=== PATIENT | male | born 1960 | race Caucasian/White ===

== ENCOUNTER 2022-03-30 08:57 | Outpatient (CLI) | payer BC, SELFPAY ==
[2022-03-30 14:04] LABS: Chloride* 107 mmol/L (96-114)
[2022-03-30 14:05] LABS: Potassium* 4.8 mmol/L (3.6-5.1); Sodium* 139 mmol/L (135-149)
[2022-03-30 14:07] LABS: Creatinine* 1.2 mg/dL (0.5-1.5); Estimated Glomerular Filt Rate 69 ml/min
[2022-03-30 14:08] LABS: Blood Urea Nitrogen* 27 mg/dL (7-30); Calcium* 9.5 mg/dL (8.4-10.6); Carbon Dioxide* 26 mmol/L (20-32); Glucose* 104 mg/dL (60-115)
== END 2022-03-30 08:58 | disposition home or self-care (01) ==
LOC: LONREF 08:58
PROVIDERS: PCP Family Medicine; Visit Provider Family Medicine
DX: I10 Essential (primary) hypertension (principal)
CPT/HCPCS: 80048

== ENCOUNTER 2022-05-20 11:44 | Outpatient (CLI) | payer BC, SELFPAY ==
[2022-05-20 12:09] VITALS: BP 164/98; PULSE 78; RESP 16; O2SAT 94
[2022-05-20] MEDS: TETRACAINE 0.5% OPHTH 1 DROP EYE-RIGHT ×3 (12:13→12:39)
[2022-05-20] MEDS: BRIMONIDINE TARTRATE 0.2% OPHTH 1 DROP EYE-RIGHT ×2 (12:14→12:49)
--- NOTE | 2022-05-20 12:48 | W.PM.OPTPROC ---
Procedure Note Date of procedure: 05/20/22 Will [facility] bill your pro fee for this procedure?: Yes Procedure Description: SURGEON: Cailin Molina MD PREOPERATIVE DIAGNOSIS: Posterior capsular opacity, right eye POSTOPERATIVE DIAGNOSIS: Posterior capsular opacity, right eye PROCEDURE: YAG laser capsulotomy, right eye ANESTHESIA: Topical. ESTIMATED BLOOD LOSS: None PATHOLOGY SPECIMEN: None COMPLICATIONS: None INDICATIONS: See consult note for details. The risks, benefits and alternatives of the procedure were explained to the patient, who elected to proceed and signed informed consent to do so. PROCEDURE: The patient was brought to the pre-holding area where the right eye was identified as the operative eye. I placed my initials above this eye. The patient received 2 sets of 1 drop of 0.5% tetracaine and 1 drop of 1% tropicamide. They also received 1 drop of 0.2% brimonidine. They received 1 drop of 0.5% tetracaine immediately prior to bringing them back for the procedure. The patient was then brought to the procedure room where the right eye was again identified as the operative eye. A YAG Ruben capsulotomy lens was placed on the eye. The laser was administered using a total number of 29 shots with an energy of 2.4 mJ per shot for a total energy of 70 mJ. The patient tolerated the procedure well. DISPOSITION: The patient was taken back to the pre-holding area and given 1 drop of 0.2% brimonidine in the right eye. They were discharged to home in stable condition. The patient was instructed to call me or go to the emergency department with any sudden change, including dramatic loss of vision, severe pain in the eye or eyebrow region, nausea, or vomiting. The patient was instructed to use the 0.2% brimonidine 1 drop 2 times a day in the right eye for 1 week. The patient will follow up in the clinic in 1-2 weeks. Surgeon: Cailin Molina MD
== END 2022-05-20 12:55 | disposition home or self-care (01) ==
PROVIDERS: PCP Family Medicine; Visit Provider Ophthalmology
DX: H26.9 Unspecified cataract (principal)
CPT/HCPCS: 66821; A9270

== ENCOUNTER 2022-07-06 10:42 | Outpatient (CLI) | payer BC, SELFPAY | END 2022-07-06 10:43 | disposition home or self-care (01) | LOC: LONREF 10:43 | PROVIDERS: PCP Family Medicine; Visit Provider Family Medicine | DX: M10.9 Gout, unspecified (principal); I10 Essential (primary) hypertension | CPT/HCPCS: 84550 ==

== ENCOUNTER 2022-09-05 17:15 | Emergency (ER) | payer BC, SELFPAY ==
[2022-09-05 17:28] VITALS: BP 118/71; PULSE 72; RESP 18; TEMP 36.6; O2SAT 96; BMI 37.1
--- NOTE | 2022-09-05 19:20 | ED.GENADULT ---
HPI - General Adult General Chief complaint: GI Bleed Stated complaint: Rectal Bleeding Time Seen by Provider: 09/05/22 19:04 History of Present Illness HPI narrative: This 62-year-old male comes in reporting a couple episodes of bright red blood streaking the stool that occurred this morning. He states that he feels completely fine. He did have 2 colonoscopies in the past. One was about 12 years ago and another 1 several years ago. There was a polyp that was scheduled to be removed but repeat colonoscopy showed resolution. He does not report any fever or abdominal pain. He has not had any dysuria or altered bowel function. He does not report any lightheadedness or shortness of breath. Related Data Home Medications Medication Instructions Recorded Confirmed glucosamine HCl 1,500 mg tablet 1,500 mg PO QDAY 03/30/22 08/30/22 Previous Rx's Medication Instructions Recorded lisinopril 40 mg tablet 40 mg PO QDAY #90 tabs 03/30/22 albuterol sulfate 90 mcg/actuation 2 puff inhalation Q4-6H PRN 04/01/22 aerosol inhaler shortness of breath or wheezing #25.5 grams finasteride 5 mg tablet See Rx Instructions .Route 04/01/22 .COMPLEX #90 tabs fluticasone 250 mcg-salmeterol 50 1 inh inhalation BID #180 ea 04/01/22 mcg/dose blistr powdr for inhalation (Veroniquexela Inhub) montelukast 10 mg tablet See Rx Instructions .Route 04/01/22 .COMPLEX #90 tabs allopurinol 100 mg tablet See Rx Instructions PO QDAY #180 07/06/22 tabs amlodipine 10 mg tablet 10 mg PO QDAY #90 tabs 07/06/22 metoprolol succinate 25 mg 25 mg PO QDAY #60 tabs 07/31/22 tablet,extended release 24 hr indomethacin 50 mg capsule 50 mg PO TID #30 caps 08/11/22 indomethacin 50 mg capsule 50 mg PO TID PRN gout #30 caps 08/30/22 prednisone 20 mg tablet 40 mg (2 x 20 mg) PO QDAY #14 tabs 08/30/22 spironolactone 25 mg tablet 25 mg PO BID #180 tabs 09/03/22 Allergies Allergy/AdvReac Type Severity Reaction Status Date / Time No Known Allergies Allergy Unknown Verified 08/30/22 08:42 Review of Systems Status of ROS: Reports: 10 or more systems reviewed and unremarkable except as noted in History and below Narrative: Constitutional: No fevers, no weight gain or loss. Eyes: No discharge. No vision changes. HENT: No congestion, no sore throat, no ear pain. Cardiovascular: No chest pain, no palpitations. Respiratory: No shortness of breath, no wheezes, no cough. Gastrointestinal: No abdominal pain, no vomiting, no diarrhea. Bright red blood streaking the stool this morning. Genitourinary: No dysuria, no hematuria. Musculoskeletal: Normal range of motion. Skin: No rashes, no pruritis. Neurological: No dizziness, weakness, sensory change, speech change. Endo/Heme/Allergies: No bruising or bleeding. No polydipsia. Pysch: no suicidality, no anxiety, no insomnia. All other systems reviewed and are negative. [facility] Medical History History of retinal tear ?Z86.69 - Personal history of other diseases of the nervous system and sense organs (ICD-10) Surgical History Status post tonsillectomy and adenoidectomy (11/19/09) ?Z90.89 - Acquired absence of other organs (ICD-10) Status post nasal septoplasty ?Z98.890 - Other specified postprocedural states (ICD-10) History of vasectomy (11/19/09) ?Z98.52 - Vasectomy status (ICD-10) Family History Other Colon cancer Diabetes Multiple myeloma Social History Smoking Status: Never smoker How often do you have a drink containing alcohol: 4 or more times a week How many standard drinks containing alcohol do you have on a typical day: 7 to 9 How often do you have six or more drinks on one occasion: Daily or almost daily AUDIT-C Alcohol total score: 11 Non-prescribed substance use: denies use Exam Narrative: Exam Narrative: Constitutional: Well-developed, well-nourished, no acute distress. HEENT: Normocephalic, atraumatic. Neck: Normal range of motion. Nontender. Supple. Heart: Regular. No murmurs. Normal rate. Intact distal pulses. Lungs: Clear to auscultation. No chest discomfort. No wheezes, rhonchi, or rales. Abdomen: Normal bowel sounds. Nontender. No rebound tenderness. Back: No midline tenderness. Normal range of motion. Extremities: Normal range of motion. No injury. Skin: Intact. No rash. Warm. No erythema or pallor. Neurologic: No altered sensation. No weakness. Alert and oriented. Psychiatric: No suicidality. No anxiety or depression. No insomnia. Nursing notes and vitals signs are reviewed. Const: Vital Signs, click to edit/add: Vital Signs - 24 hr 09/05/22 17:28 09/05/22 19:26 Temperature 97.9 F Pulse Rate [Right Pulse Oximeter] 72 70 Respiratory Rate 18 Blood Pressure [Ri ght Upper Arm] 118/71 129/97 H Pulse Oximetry 96 95 Oxygen Delivery Me thod Room Air Room Air Course Vital Signs Vital signs: Initial Vital Signs Temperature 97.9 F 09/05/22 17:28 Temperature Source Temporal Artery Scan 09/05/22 17:28 Pulse Rate 72 09/05/22 17:28 Respiratory Rate 18 09/05/22 17:28 Blood Pressure 118/71 09/05/22 17:28 Blood Pressure Mean 86 09/05/22 17:28 Blood Pressure Position Sitting 09/05/22 17:28 Pulse Oximetry 96 09/05/22 17:28 Oxygen Delivery Method Room Air 09/05/22 17:28 Vital Signs Temperature 97.9 F 09/05/22 17:28 Pulse Rate 72 09/05/22 17:28 Respiratory Rate 18 09/05/22 17:28 Blood Pressure 118/71 09/05/22 17:28 Pulse Oximetry 96 09/05/22 17:28 Oxygen Delivery Method Room Air 09/05/22 17:28 Temperature 97.9 F 09/05/22 17:28 Pulse Rate 70 09/05/22 19:26 Respiratory Rate 18 09/05/22 17:28 Blood Pressure 129/97 H 09/05/22 19:26 Pulse Oximetry 95 09/05/22 19:26 Oxygen Delivery Method Room Air 09/05/22 19:26 Medical Decision Making MDM Narrative Medical decision making narrative: This patient reports a couple episodes of bright red blood streaking the stool this morning. He states that he feels completely normal. He has had a couple colonoscopies in the past and there was evidence of a polyp on 1 of own. I did acquire labs today and these returned with reassuring findings. In particular his hemoglobin is at 13. I stressed the importance of follow-up appointment for flexible sigmoidoscopy or colonoscopy to further evaluate this. He is okay to be discharged home. I did describe signs and symptoms that would indicate a need for return and re-evaluation. Lab Data Labs: Lab Results 09/05/22 Range/Units 19:37 WBC 8.60 (4.50-11.00) K/uL RBC 4.60 (4.30-5.90) m/uL Hgb 13.2 L (13.5-17.5) gm/dL Hct 40.2 (37.0-53.0) % MCV 87 (80-100) fL MCH 29 (26-34) pg MCHC 33 (32-36) gm/dL RDW Coeff of Ama 14.3 (11.5-15.5) % Plt Count 316 (140-440) K/uL Neut % (Auto) 49.7 (42.0-72.0) % Lymph % (Auto) 32.6 (20-44) % [place] % (Auto) 11.6 H (0.0-11.0) % Eos % (Auto) 5.2 (0.0-7.0) % Baso % (Auto) 0.8 (0.0-3.0) % Neut # (Auto) 4.27 (1.7-7.0) K/uL Lymph # (Auto) 2.80 (0.90-2.90) K/uL [place] # (Auto) 1.00 H (0.00-0.90) K/UL Eos # (Auto) 0.45 (0.00-0.50) K/uL Baso # (Auto) 0.07 (0.00-0.30) K/uL Sodium 135 (135-149) mmol/L Potassium 5.1 (3.6-5.1) mmol/L Chloride 110 (96-114) mmol/L Carbon Dioxide 20 (20-32) mmol/L BUN 39 H (7-30) mg/dL Creatinine 1.3 (0.5-1.5) mg/dL Estimated Creat Clear 53.17 Estimated GFR 62 ml/min Glucose 85 (60-115) mg/dL Calcium 9.1 (8.4-10.6) mg/dL Discharge Plan Discharge Clinical Impression: Painless rectal bleeding Patient Disposition: Home, Self-Care Condition: Stable Additional Instructions: Continue current plans. Follow up with primary physician to arrange for colonoscopy or flexible sigmoidoscopy for further evaluation. Return if symptoms are recurrent or worsening. Prescriptions: No Action glucosamine HCl 1,500 mg tablet 1,500 mg PO QDAY Rx Instructions: administer with a meal lisinopril 40 mg tablet 40 mg PO QDAY Qty: 90 3RF amlodipine 10 mg tablet 10 mg PO QDAY Qty: 90 3RF allopurinol 100 mg tablet See Rx Instructions PO QDAY Qty: 180 3RF Rx Instructions: 100 mg daily for 10 days, then 200 mg daily orally every day; metoprolol succinate 25 mg tablet extended release 24 hr 25 mg PO QDAY Qty: 60 0RF indomethacin 50 mg capsule 50 mg PO TID Qty: 30 3RF Rx Instructions: administer with food or milk indomethacin 50 mg capsule 50 mg PO TID PRN (Reason: gout) Qty: 30 0RF Rx Instructions: administer with food or milk prednisone 20 mg tablet 40 mg PO QDAY Qty: 14 0RF albuterol sulfate 90 mcg/actuation HFA aerosol inhaler 2 puff inhalation Q4-6H PRN (Reason: shortness of breath or wheezing) Qty: 25.5 3RF finasteride 5 mg tablet See Rx Instructions .ROUTE .COMPLEX Qty: 90 3RF Dose Instruction: TAKE 1 TABLET BY MOUTH DAILY Rx Instructions: TAKE 1 TABLET BY MOUTH DAILY fluticasone propion-salmeterol [Wixela Inhub] 250-50 mcg/dose blister with device 1 inh inhalation BID Qty: 180 3RF montelukast 10 mg tablet See Rx Instructions .ROUTE .COMPLEX Qty: 90 3RF Dose Instruction: TAKE 1 TABLET BY MOUTH AT BEDTIME Rx Instructions: TAKE 1 TABLET BY MOUTH AT BEDTIME spironolactone 25 mg tablet 25 mg PO BID Qty: 180 3RF Follow Up/Referrals: Chevy Zuleta MD [Primary Care Provider] - Stand Alone Forms: [facility] Info Instructions
[2022-09-05 19:26] VITALS: BP 129/97; PULSE 70; O2SAT 95
[2022-09-05 19:44] LABS: Basophils Absolute Auto 0.07 K/uL (0.00-0.30); Basophils Percent Auto 0.8 % (0.0-3.0); Eosinophils Absolute Auto 0.45 K/uL (0.00-0.50); Eosinophils Percent Auto 5.2 % (0.0-7.0); Hematocrit 40.2 % (37.0-53.0); Hemoglobin* 13.2 gm/dL (13.5-17.5); Immature Granulocytes Abs Auto 0.01 K/uL (0.00-0.30); Immature Granulocytes Pct Auto 0.1 %; Lymphocytes Percent Auto 32.6 % (20-44); Mean Corpuscular HGB Conc 33 gm/dL (32-36); Mean Corpuscular Hemoglobin 29 pg (26-34); Mean Corpuscular Volume 87 fL (80-100); Monocytes Percent Auto 11.6 % (0.0-11.0); Neutrophils Absolute Auto 4.27 K/uL (1.7-7.0); Neutrophils Percent Auto 49.7 % (42.0-72.0); Platelet Count* 316 K/uL (140-440); RDW Coefficient of Variation % 14.3 % (11.5-15.5)
[2022-09-05 19:48] LABS: Slide Review Reflex No
[2022-09-05 19:59] LABS: Chloride* 110 mmol/L (96-114); Potassium* 5.1 mmol/L (3.6-5.1); Sodium* 135 mmol/L (135-149)
[2022-09-05 20:02] LABS: Blood Urea Nitrogen* 39 mg/dL (7-30); Carbon Dioxide* 20 mmol/L (20-32); Creatinine* 1.3 mg/dL (0.5-1.5); Est. Creatinine Clearance* 53.17; Estimated Glomerular Filt Rate 62 ml/min
[2022-09-05 20:03] LABS: Calcium* 9.1 mg/dL (8.4-10.6); Glucose* 85 mg/dL (60-115)
== END 2022-09-05 20:17 | disposition home or self-care (01) ==
PROVIDERS: Emergency Provider Emergency Medicine Emergency Medical Services; PCP Family Medicine
DX: K62.5 Hemorrhage of anus and rectum (principal)
CPT/HCPCS: 36415; 80048; 85025; 99283; 99284

== ENCOUNTER 2022-10-02 10:29 | Outpatient (CLI) | payer BC, SELFPAY | END 2022-10-02 10:30 | disposition home or self-care (01) | PROVIDERS: PCP Family Medicine; Visit Provider Family Medicine | DX: I10 Essential (primary) hypertension (principal); M10.9 Gout, unspecified; R53.83 Other fatigue; M25.50 Pain in unspecified joint | CPT/HCPCS: 84443; 84550; 86200; 86431 ==

== ENCOUNTER 2023-02-13 12:17 | Emergency (ER) | payer BC, SELFPAY ==
[2023-02-13] VITALS (7 sets, daily range): BP systolic 126–141; BP diastolic 81–89; PULSE 71–89; RESP 16–18; TEMP 35.8; O2SAT 95–98; BMI 37.6
--- NOTE | 2023-02-13 13:23 | ED.GENADULT ---
HPI - General Adult General Chief complaint: Syncope/Fainted Stated complaint: passed out about an hr ago high blood pressure Time Seen by Provider: 02/13/23 12:58 History of Present Illness HPI narrative: This 62-year-old male comes in reporting as a episode of lightheadedness with brief loss of consciousness that occurred prior to arrival. He states that he was laying down under a vehicle working on it is under body when he began to feel lightheaded and states that he had a brief loss of consciousness. After this occurred he had some nausea and was a bit diaphoretic. He does not report any pain. He is on several antihypertensive medications and reports that he had a new prescription for spironolactone where the pill looks different than what he had been taking. He did take a tablet this morning and wonders if he may have taken an extra dose somehow. Currently he feels back to normal. Related Data Previous Rx's Medication Instructions Recorded albuterol sulfate 90 mcg/actuation 2 puff inhalation Q4-6H PRN 09/11/22 aerosol inhaler shortness of breath or wheezing #25.5 grams allopurinol 300 mg tablet 300 mg PO QDAY #90 tabs 09/11/22 meclizine 25 mg tablet 25 mg PO TID PRN vertigo #20 tabs 11/02/22 chlorthalidone 25 mg tablet 25 mg PO QDAY #90 tabs 01/08/23 finasteride 5 mg tablet See Rx Instructions .Route 01/08/23 .COMPLEX #90 tabs fluticasone 250 mcg-salmeterol 50 1 inh inhalation BID #180 ea 01/08/23 mcg/dose blistr powdr for inhalation (Wixela Inhub) fluticasone 500 mcg-salmeterol 50 1 inh inhalation BID #180 ea 01/08/23 mcg/dose blistr powdr for inhalation (Wixela Inhub) lisinopril 40 mg tablet 40 mg PO QDAY #90 tabs 01/08/23 montelukast 10 mg tablet See Rx Instructions .Route 01/08/23 .COMPLEX #90 tabs spironolactone 25 mg tablet 50 mg (2 x 25 mg) PO BID #360 tabs 01/08/23 albuterol sulfate 90 mcg/actuation 2 puff inhalation Q4-6H PRN 01/20/23 aerosol inhaler shortness of breath or wheezing #17 grams Allergies Allergy/AdvReac Type Severity Reaction Status Date / Time No Known Allergies Allergy Unknown Verified 01/08/23 07:38 Review of Systems Status of ROS: Reports: 10 or more systems reviewed and unremarkable except as noted in History and below Narrative: Constitutional: No fevers, no weight gain or loss. Eyes: No discharge. No vision changes. HENT: No congestion, no sore throat, no ear pain. Cardiovascular: No chest pain, no palpitations. Respiratory: No shortness of breath, no wheezes, no cough. Gastrointestinal: No abdominal pain, no vomiting, no diarrhea. Genitourinary: No dysuria, no hematuria. Musculoskeletal: Normal range of motion. Skin: No rashes, no pruritis. Neurological: No weakness, sensory change, speech change. Endo/Heme/Allergies: No bruising or bleeding. No polydipsia. Pysch: no suicidality, no anxiety, no insomnia. All other systems reviewed and are negative. [facility] Medical History History of retinal tear ?Z86.69 - Personal history of other diseases of the nervous system and sense organs (ICD-10) Surgical History Status post tonsillectomy and adenoidectomy (11/19/09) ?Z90.89 - Acquired absence of other organs (ICD-10) Status post nasal septoplasty ?Z98.890 - Other specified postprocedural states (ICD-10) History of vasectomy (11/19/09) ?Z98.52 - Vasectomy status (ICD-10) Family History Other Colon cancer Diabetes Multiple myeloma Social History Smoking Status: Former smoker How often do you have a drink containing alcohol: 4 or more times a week How many standard drinks containing alcohol do you have on a typical day: 5 or 6 AUDIT-C Alcohol total score: 6 Non-prescribed substance use: denies use Exam Narrative: Exam Narrative: Constitutional: Well-developed, well-nourished, no acute distress. HEENT: Normocephalic, atraumatic. Neck: Normal range of motion. Nontender. Supple. Heart: Regular. No murmurs. Normal rate. Intact distal pulses. Lungs: Clear to auscultation. No chest discomfort. No wheezes, rhonchi, or rales. Abdomen: Normal bowel sounds. Nontender. No rebound tenderness. Genitalia: Deferred. Back: No midline tenderness. Normal range of motion. Extremities: Normal range of motion. No injury. Skin: Intact. No rash. Warm. No erythema or pallor. Neurologic: No altered sensation. No weakness. Alert and oriented. Psychiatric: No suicidality. No anxiety or depression. No insomnia. Nursing notes and vitals signs are reviewed. Const: Vital Signs, click to edit/add: Vital Signs - 24 hr 02/13/23 12:26 02/13/23 12:30 02/13/23 13:00 Temperature 96.5 F L Pulse Rate [Pulse Oximeter] 72 71 89 Pulse Rate [orthos tatic lying Right Pulse Oximeter] Pulse Rate [orthos tatic sitting Righ t Pulse Oximeter] Pulse Rate [orthos tatic standing Rig ht Pulse Oximeter] Respiratory Rate 18 16 16 Blood Pressure [Ri ght Upper Arm] 137/85 137/89 135/81 Blood Pressure [or thostatic lying Le ft Arm] Blood Pressure [or thostatic sitting Left Arm] Blood Pressure [or thostatic standing Left Arm] Pulse Oximetry 97 98 95 Oxygen Delivery Me thod Room Air Room Air Room Air 02/13/23 13:30 02/13/23 13:40 02/13/23 13:40 Temperature Pulse Rate [Pulse Oximeter] 75 84 Pulse Rate [orthos tatic lying Right Pulse Oximeter] 84 Pulse Rate [orthos tatic sitting Righ t Pulse Oximeter] 85 Pulse Rate [orthos tatic standing Rig ht Pulse Oximeter] 78 Respiratory Rate 16 16 Blood Pressure [Ri ght Upper Arm] 137/89 126/82 Blood Pressure [or thostatic lying Le ft Arm] 126/82 Blood Pressure [or thostatic sitting Left Arm] 141/86 H Blood Pressure [or thostatic standing Left Arm] 128/82 Pulse Oximetry 96 97 Oxygen Delivery Me thod Room Air Room Air 02/13/23 13:42 02/13/23 13:44 Temperature Pulse Rate [Pulse Oximeter] 85 78 Pulse Rate [orthos tatic lying Right Pulse Oximeter] Pulse Rate [orthos tatic sitting Righ t Pulse Oximeter] Pulse Rate [orthos tatic standing Rig ht Pulse Oximeter] Respiratory Rate 16 16 Blood Pressure [Ri ght Upper Arm] 141/86 H 128/82 Blood Pressure [or thostatic lying Le ft Arm] Blood Pressure [or thostatic sitting Left Arm] Blood Pressure [or thostatic standing Left Arm] Pulse Oximetry 96 Oxygen Delivery Me thod Room Air Room Air Course Vital Signs Vital signs: Initial Vital Signs Temperature 96.5 F L 02/13/23 12:26 Temperature Source Temporal Artery Scan 02/13/23 12:26 Pulse Rate 72 02/13/23 12:26 Respiratory Rate 18 02/13/23 12:26 Blood Pressure 137/85 02/13/23 12:26 Blood Pressure Mean 102 02/13/23 12:26 Blood Pressure Position Supine 02/13/23 12:26 Pulse Oximetry 97 02/13/23 12:26 Oxygen Delivery Method Room Air 02/13/23 12:26 Vital Signs Temperature 96.5 F L 02/13/23 12:26 Pulse Rate 72 02/13/23 12:26 Respiratory Rate 18 02/13/23 12:26 Blood Pressure 137/85 02/13/23 12:26 Pulse Oximetry 97 02/13/23 12:26 Oxygen Delivery Method Room Air 02/13/23 12:26 Temperature 96.5 F L 02/13/23 12:26 Pulse Rate 78 02/13/23 13:44 Respiratory Rate 16 02/13/23 13:44 Blood Pressure 128/82 02/13/23 13:44 Pulse Oximetry 96 02/13/23 13:44 Oxygen Delivery Method Room Air 02/13/23 13:44 Medical Decision Making MDM Narrative Medical decision making narrative: This patient comes in for evaluation of a brief episode of lightheadedness that resulted in brief loss of consciousness. Currently he feels back to normal. Orthostatic pressures and pulse are obtained and these are in normal range. Lab results also returned with reassuring findings. His EKG is also showing normal sinus rhythm. I did review the patient's medications and he reports that he may have been taking more spironolactone them what was prescribed. I did look at his previous visit with his primary physician who reports that he should be taking 50 mg of spironolactone twice daily. The patient has a bottle of pills that are 50 mg tablets but also has another bottle that are 25 mg tablets where he was instructed to take 2 tablets twice daily. The patient states that he has been taking medicine from both of these bottles and likely is then taking 75 mg twice daily. Additionally he had chlorthalidone added to his medications in this last visit. It could be that his symptoms today are in part related to his medications that may be more than what he should be taking. His vital signs are normal here. He does state that he is tired all the time but does have some sleep apnea symptoms and states that he does not tolerate a CPAP machine. This patient is okay to return home and encouraged to follow-up with his primary physician for ongoing management of his medications. Lab Data Labs: Lab Results 02/13/23 Range/Units 12:45 WBC 9.96 (4.50-11.00) K/uL RBC 3.83 L (4.30-5.90) m/uL Hgb 11.5 L (13.5-17.5) gm/dL Hct 36.1 L (37.0-53.0) % MCV 94 (80-100) fL MCH 30 (26-34) pg MCHC 32 (32-36) gm/dL RDW Coeff of Ama 14.3 (11.5-15.5) % Plt Count 284 (140-440) K/uL Neut % (Auto) 76.5 H (42.0-72.0) % Lymph % (Auto) 12.2 L (20-44) % [place] % (Auto) 5.5 (0.0-11.0) % Eos % (Auto) 5.0 (0.0-7.0) % Baso % (Auto) 0.6 (0.0-3.0) % Neut # (Auto) 7.60 H (1.7-7.0) K/uL Lymph # (Auto) 1.20 (0.90-2.90) K/uL [place] # (Auto) 0.50 (0.00-0.90) K/UL Eos # (Auto) 0.50 (0.00-0.50) K/uL Baso # (Auto) 0.06 (0.00-0.30) K/uL Abs Immat Gran (auto) 0.02 (0.00-0.30) K/uL Imm/Tot Granulo (auto) 0.2 % Sodium 140 (135-149) mmol/L Potassium 4.8 (3.6-5.1) mmol/L Chloride 111 (96-114) mmol/L Carbon Dioxide 20 (20-32) mmol/L Anion Gap 9 (7-15) mEq/L BUN 31 H (7-30) mg/dL Creatinine 1.1 (0.5-1.5) mg/dL Estimated Creat Clear 65.10 Estimated GFR 76 ml/min Glucose 114 (60-115) mg/dL Calcium 9.5 (8.4-10.6) mg/dL POC Troponin I 0.00 L (0.01-0.04) ng/ml ECG Data Attestation: I personally reviewed and interpreted this ECG as follows: Interpretation: Normal sinus rhythm. Rate is 72 beats per minute. There are no ST or T-wave abnormalities. Right bundle branch block. Discharge Plan Discharge Clinical Impression: Syncope Patient Disposition: Home, Self-Care Condition: Improved Additional Instructions: Continue current medications with specific instruction to take spironolactone 50 mg twice daily. Follow-up with primary physician to review medications. Return if symptoms are recurrent or worsening. Prescriptions: No Action allopurinol 300 mg tablet 300 mg PO QDAY Qty: 90 3RF albuterol sulfate 90 mcg/actuation HFA aerosol inhaler 2 puff inhalation Q4-6H PRN (Reason: shortness of breath or wheezing) Qty: 25.5 3RF meclizine 25 mg tablet 25 mg PO TID PRN (Reason: vertigo) Qty: 20 0RF finasteride 5 mg tablet See Rx Instructions .ROUTE .COMPLEX Qty: 90 3RF Dose Instruction: TAKE 1 TABLET BY MOUTH DAILY Rx Instructions: TAKE 1 TABLET BY MOUTH DAILY fluticasone propion-salmeterol [Wixela Inhub] 250-50 mcg/dose blister with device 1 inh inhalation BID Qty: 180 3RF lisinopril 40 mg tablet 40 mg PO QDAY Qty: 90 3RF montelukast 10 mg tablet See Rx Instructions .ROUTE .COMPLEX Qty: 90 3RF Dose Instruction: TAKE 1 TABLET BY MOUTH AT BEDTIME Rx Instructions: TAKE 1 TABLET BY MOUTH AT BEDTIME spironolactone 25 mg tablet 50 mg PO BID Qty: 360 3RF chlorthalidone 25 mg tablet 25 mg PO QDAY Qty: 90 3RF fluticasone propion-salmeterol [Wixela Inhub] 500-50 mcg/dose blister with device 1 inh inhalation BID Qty: 180 3RF albuterol sulfate 90 mcg/actuation HFA aerosol inhaler 2 puff inhalation Q4-6H PRN (Reason: shortness of breath or wheezing) Qty: 17 10RF Follow Up/Referrals: Chevy Zuleta MD [Primary Care Provider] - Stand Alone Forms: [employer] Info Instructions
[2023-02-13 13:40] LABS: Basophils Absolute Auto 0.06 K/uL (0.00-0.30); Basophils Percent Auto 0.6 % (0.0-3.0); Hematocrit 36.1 % (37.0-53.0); Hemoglobin* 11.5 gm/dL (13.5-17.5); Immature Granulocytes Abs Auto 0.02 K/uL (0.00-0.30); Immature Granulocytes Pct Auto 0.2 %; Lymphocytes Percent Auto 12.2 % (20-44); Mean Corpuscular HGB Conc 32 gm/dL (32-36); Mean Corpuscular Hemoglobin 30 pg (26-34); Mean Corpuscular Volume 94 fL (80-100); Monocytes Percent Auto 5.5 % (0.0-11.0); Neutrophils Percent Auto 76.5 % (42.0-72.0); Platelet Count* 284 K/uL (140-440); RDW Coefficient of Variation % 14.3 % (11.5-15.5); Red Blood Count 3.83 m/uL (4.30-5.90); White Blood Count* 9.96 K/uL (4.50-11.00)
[2023-02-13 13:44] LABS: Slide Review Reflex No
[2023-02-13 13:58] LABS: Chloride* 111 mmol/L (96-114); Potassium* 4.8 mmol/L (3.6-5.1); Sodium* 140 mmol/L (135-149)
[2023-02-13 14:01] LABS: Anion Gap 9 mEq/L (7-15); Blood Urea Nitrogen* 31 mg/dL (7-30); Carbon Dioxide* 20 mmol/L (20-32); Creatinine* 1.1 mg/dL (0.5-1.5); Estimated Glomerular Filt Rate 76 ml/min; Glucose* 114 mg/dL (60-115)
[2023-02-13 14:02] LABS: Calcium* 9.5 mg/dL (8.4-10.6)
== END 2023-02-13 14:56 | disposition home or self-care (01) ==
PROVIDERS: Emergency Provider Emergency Medicine Emergency Medical Services; PCP Family Medicine
DX: R55 Syncope and collapse (principal)
CPT/HCPCS: 36415; 80048; 84443; 84484; 85025; 93005; 99284

== ENCOUNTER 2023-05-22 03:27 | Emergency (ER) | payer BC, SELFPAY ==
[2023-05-22 03:36] VITALS: BP 142/78; PULSE 90; RESP 20; TEMP 36.5; O2SAT 97; BMI 39.9
--- NOTE | 2023-05-22 03:37 | ED.EPISTAXIS ---
History of Present Illness General Chief Complaint: Epistaxis/Nosebleed Stated Complaint: Nose Bleed Time Seen by Provider: 05/22/23 03:37 History of Present Illness HPI Narrative: Patient is a 62-year-old gentleman who comes in today with the abrupt onset of epistaxis. He has had no recent illnesses and takes no anticoagulants or blood thinners. He woke in the middle of the night tonight with a bleeding when originally from the left nostril than both nostrils. The bleeding has now stopped. He has no further bleeding down his throat or externally. No recent trauma or illnesses. He has no discomfort. He has had no other recent bleeding. Related Data Home Medications Medication Instructions Recorded Confirmed spironolactone 50 mg tablet 50 mg PO BID 03/26/23 03/26/23 Previous Rx's Medication Instructions Recorded allopurinol 300 mg tablet 300 mg PO QDAY #90 tabs 09/11/22 chlorthalidone 25 mg tablet 25 mg PO QDAY #90 tabs 01/08/23 finasteride 5 mg tablet See Rx Instructions .Route 01/08/23 .COMPLEX #90 tabs fluticasone 500 mcg-salmeterol 50 1 inh inhalation BID #180 ea 01/08/23 mcg/dose blistr powdr for inhalation (Wixela Inhub) lisinopril 40 mg tablet 40 mg PO QDAY #90 tabs 01/08/23 montelukast 10 mg tablet See Rx Instructions .Route 01/08/23 .COMPLEX #90 tabs albuterol sulfate 90 mcg/actuation 2 puff inhalation Q4-6H PRN 01/20/23 aerosol inhaler shortness of breath or wheezing #17 grams celecoxib 200 mg capsule 200 mg PO QDAY #60 caps 03/26/23 Allergies Allergy/AdvReac Type Severity Reaction Status Date / Time No Known Allergies Allergy Unknown Verified 05/22/23 03:35 Review of Systems Status of ROS: Reports: 10 or more systems reviewed and unremarkable except as noted in History and below [facility] Medical History Benign recurrent vertigo ?H81.10 - Benign paroxysmal vertigo, unspecified ear (ICD-10) History of retinal tear ?Z86.69 - Personal history of other diseases of the nervous system and sense organs (ICD-10) Surgical History History of eye surgery ?Z98.890 - Other specified postprocedural states (ICD-10) Status post tonsillectomy and adenoidectomy (11/19/09) ?Z90.89 - Acquired absence of other organs (ICD-10) Status post nasal septoplasty ?Z98.890 - Other specified postprocedural states (ICD-10) History of vasectomy (11/19/09) ?Z98.52 - Vasectomy status (ICD-10) Family History Other Colon cancer Diabetes Multiple myeloma Social History Smoking Status: Former smoker How often do you have a drink containing alcohol: 4 or more times a week How many standard drinks containing alcohol do you have on a typical day: 5 or 6 AUDIT-C Alcohol total score: 6 Non-prescribed substance use: denies use Little interest or pleasure in doing things: more than half the days Feeling down, depressed, or hopeless: not at all Exam Narrative: Exam Narrative: EXAM GENERAL: Patient appears comfortable and well. EYES: No scleral icterus. ENT: Coagulated blood in the nostrils bilaterally primarily on the left with no acute bleeding noted. No bleeding down the posterior pharynx either. THYROID: no thyroid nodules or thyromegaly. LYMPH: No supraclavicular or cervical lymphadenopathy. SKIN: Visible skin seen during exam normal or with benign process only. EXT: No dependent lower extremity pedal edema. HEART: Regular rate and rhythm with no murmurs, rubs, or gallops. LUNGS: Clear to auscultation bilaterally with no crackles or wheezes. ABD: Soft, non tender, non distended. PSYCH: Good eye contact, speech is not pressured. Course Course ED Course: Patient is 62-year-old gentleman who presents with acute epistaxis now stopped. MDM - Epistaxis MDM Narrative Medical decision making narrative: Patient is a 62-year-old gentleman who awoke with acute epistaxis. Epistaxis has now stop spontaneously. He is observed for a time in the ER to ensure that the bleeding is not continuing. He is hemodynamically stable and as result is allowed to go home to continue his current medications with outpatient follow-up. I do not believe further evaluation is warranted given the limited nosebleed and affect that the nosebleed stopped on his own. Differential Diagnosis Differential diagnosis: Likely nasal bone fracture, anterior epistaxis and posterior epistaxis Discharge Plan Discharge Clinical Impression: Epistaxis Patient Disposition: Home, Self-Care Condition: Stable Instructions: Nosebleed (ED) Additional Instructions: Continue current medications Nasal saline irrigation gently over the next several days. Follow-up with your doctor this coming week. Activity Level: No Restrictions Discharge Diet: Regular Prescriptions: No Action spironolactone 50 mg tablet 50 mg PO BID celecoxib 200 mg capsule 200 mg PO QDAY Qty: 60 5RF allopurinol 300 mg tablet 300 mg PO QDAY Qty: 90 3RF finasteride 5 mg tablet See Rx Instructions .ROUTE .COMPLEX Qty: 90 3RF Dose Instruction: TAKE 1 TABLET BY MOUTH DAILY Rx Instructions: TAKE 1 TABLET BY MOUTH DAILY lisinopril 40 mg tablet 40 mg PO QDAY Qty: 90 3RF montelukast 10 mg tablet See Rx Instructions .ROUTE .COMPLEX Qty: 90 3RF Dose Instruction: TAKE 1 TABLET BY MOUTH AT BEDTIME Rx Instructions: TAKE 1 TABLET BY MOUTH AT BEDTIME chlorthalidone 25 mg tablet 25 mg PO QDAY Qty: 90 3RF fluticasone propion-salmeterol [Wixela Inhub] 500-50 mcg/dose blister with device 1 inh inhalation BID Qty: 180 3RF albuterol sulfate 90 mcg/actuation HFA aerosol inhaler 2 puff inhalation Q4-6H PRN (Reason: shortness of breath or wheezing) Qty: 17 10RF Follow Up/Referrals: Chevy Zuleta MD [Primary Care Provider] - Stand Alone Forms: Transmension Info Instructions
== END 2023-05-22 04:15 | disposition home or self-care (01) ==
LOC: ED 03:47
PROVIDERS: Emergency Provider Internal Medicine; PCP Family Medicine
DX: R04.0 Epistaxis (principal)
CPT/HCPCS: 99282; 99283

== ENCOUNTER 2024-01-21 08:40 | Outpatient (CLI) | payer BC, SELFPAY ==
[2024-01-21 09:25] LABS: Hematocrit 40.8 % (37.0-53.0); Hemoglobin* 13.3 gm/dL (13.5-17.5); Mean Corpuscular HGB Conc 33 gm/dL (32-36); Mean Corpuscular Hemoglobin 30 pg (26-34); Mean Corpuscular Volume 93 fL (80-100); Platelet Count* 266 K/uL (140-440); Red Blood Count 4.38 m/uL (4.30-5.90)
[2024-01-21 09:57] LABS: Slide Review Reflex No
[2024-01-21 13:15] LABS: Albumin* 4.1 g/dL (3.3-5.0); Chloride* 105 mmol/L (96-114); Sodium* 137 mmol/L (135-149)
[2024-01-21 13:16] LABS: Potassium* 4.9 mmol/L (3.6-5.1)
[2024-01-21 13:18] LABS: Alanine Aminotransferase* 22 U/L (4-50); Alkaline Phosphatase* 65 U/L (40-150); Anion Gap 5 mEq/L (7-15); Aspartate Amino Transferase* 23 U/L (12-35); Bilirubin Total* 0.4 mg/dL (0.1-1.5); Blood Urea Nitrogen* 26 mg/dL (7-30); Carbon Dioxide* 27 mmol/L (20-32); Cholesterol* 179 mg/dL (90-199); Estimated Glomerular Filt Rate 85 ml/min; Glucose* 102 mg/dL (60-115); Triglycerides* 187 mg/dL (40-149)
[2024-01-21 13:19] LABS: Calcium* 9.7 mg/dL (8.4-10.6); HDL Cholesterol* 47 mg/dL (>=40); LDL Cholesterol Calculated 95 mg/dL (<100)
[2024-01-21 13:20] LABS: Free T4 Free Thyroxine* 1.15 ng/dL (0.70-1.85)
[2024-01-21 13:33] LABS: Thyroid Stimulating Hormone* 0.715 uIU/mL (0.270-4.20)
[2024-01-21 13:45] LABS: PSA Screen* 0.65 ng/mL (0.10-4.00)
== END 2024-01-21 08:41 | disposition home or self-care (01) ==
PROVIDERS: PCP Family Medicine; Visit Provider Family Medicine
DX: R53.83 Other fatigue (principal); I10 Essential (primary) hypertension; Z13.220 Encounter for screening for lipoid disorders; Z12.5 Encounter for screening for malignant neoplasm of prostate; Z13.228 Encounter for screening for other metabolic disorders; Z13.29 Encounter for screening for other suspected endocrine disorder
CPT/HCPCS: 80053; 80061; 84439; 84443; 85027; G0103

== ENCOUNTER 2025-02-21 10:24 | Outpatient (CLI) | payer BC, SELFPAY | END 2025-02-21 10:25 | disposition home or self-care (01) | LOC: LKVREF 10:26 | PROVIDERS: PCP Family Medicine; Visit Provider Family Medicine | DX: I10 Essential (primary) hypertension (principal) | CPT/HCPCS: 80048 ==